=== PATIENT | female | born 1955 | race Caucasian/White ===

== ENCOUNTER 2016-11-07 12:31 | Emergency (ER) | payer MEDICAID ==
[~2016-11-07] VITALS: Ht 157.5 cm; Wt 62.6 kg
[~2016-11-07 12:31] MED LIST: ASPIR-LOW81 MG PO; ASPIRIN325 MG PO; AVPAK PRIMIDONE50 MG PO; B12 INJ.,1000 MCG/M IM; CARBIDOPA/LE1 TABLE2 PO; CLOPIDOGREL75 M2 PO; COMBIVENT RESPI1 SPR IH; GABAPENTIN800 MG PO; HABITROL21 MG/24 H TD; OMEPRAZOLE40 MG PO; PAROXETINE40 MG PO; PHENOBARBITAL16.2 MG PO; PLAQUENIL200 MG PO; SIMVASTATIN20 MG PO; TIZANIDINE HCL 44 MG NG; TOPIRAMATE200 MG PO; TRAMADOL HYDROC50 M1 PO; ZANAFLEX4 MG PO
--- NOTE | 2016-11-07 15:28 | RADIOLOGY REPORT PS360 ---
[id number] VIEWS ORDERING PHYSICIAN : Timoeto Melgar MD PATIENT AGE: 61 years GENDER: Female INDICATION: PAIN fall. Pain left shoulder. TECHNIQUE: AP internal and external rotation view along with Y view left shoulder COMPARISON: No prior relevant studies. Left rib series from today FINDINGS Fracture surgical neck of humerus. Perhaps Mildly impacted medially. With no angulation. There may be associated small flake fragment along the medial aspect of this fracture. The Y view shows subtle 2 mm posterior cortical offset of distal fracture fragment. And there is similar 2millimeter slight cortical offset of lateral cortex at this fracture on the AP external rotation view The humeral head articulates normally with the glenoid. Humeral head itself is intact. Glenoid intact. Scapula intact. Mild AC joint arthropathy and hypertrophy. Visualized superior left ribs appear intact. Left lung apex clear. Mild diffuse demineralization This fracture is also visualized on the left rib series performed today IMPRESSION: --------- 1. Acute Fracture surgical neck Left Humerus. No significant displacement ; only very subtle minor cortical offset noted
--- NOTE | 2016-11-07 15:34 | Emergency Room Report ---
History of Present Illness Time Seen by [id number] Presenting Problem in Triage Pt arrived:Wheelchair Presenting Problem:PT FELL AT HOME OUT OF A CHAIR THAT SHE WAS STANDING IN AND LANDED ON RIGHT SIDE, PT HURTING IN RIGHT BACK AND RIGHT RIB AREA. PT STATES SHE GRABBED SOMETHING WITH HER LEFT ARM AND SHE THINKS SHE DISLOCATED HER LEFT SHOULDER Onset of symptoms date/time:/ or onset unknown for:MEDICAL HX UNKNOWN Treatment Prior to Arrival: PROMOTIONS MANAGER Provided by: Sepsis Risk Assessment: Temp: 98.0 B/P: 167/91 MAP: 100 Pulse: 78 Resp: 18 Recent fever? N Clinical Suspician of Infection? N Mental Status: 1 - Regular (Normal Baseline) Sepsis Risk:Low Sepsis Risk Have you (or family members/close friends) recently traveled outside the [place]? N If Yes, where/when: Have you had exposure to infectious disease within the past month? N TB? Other? Specify: Source patient, RN notes reviewed, family, RN/MD Exam Limitations no limitations Comment This is 61-year-old lady fell out of her chair, approximately 45 minutes prior to arrival, causing her to land on the RIGHT side. Patient here complaining with LEFT shoulder pain, LEFT upper back pain, LEFT ribs pain. Patient believes she has a dislocated LEFT shoulder. The patient has any head injury, any neck pain, any loss of consciousness, nausea, vomiting, seizure activity. ALLERGIES Coded Allergies: Opioids - Morphine Analogues (ITCHING-CAN TAKE WITH BENADRYL PER PT 03/21/16) fentanyl (ANAPHYLAXIS 03/21/16) Home Medications Active Scripts Nicotine (Nicotine Patch) 21 MG TD DAILYP PRN SMOKING CESSATION #30 Ref 3 Prov: 03/24/16 Reported Medications Hydroxychloroquine Sulfate (Plaquenil) 200 MG PO BID Primidone (Avpak Primidone) 100 MG PO BID #120 TAB TIZANIDINE HCL (Zanaflex) 4 MG PO QID CARBIDOPA 25/LEVODOPA 100 (Carbidopa-Levodopa 25-100 Tab) 1 TABLET PO DAILY Simvastatin 20 MG PO DAILY #30 Vitamin B12 (Cyanocobalamin Injection) 1,000 MCG IM Q2WKS #3 PAROXETINE HCL (Paroxetine) 40 MG PO DAILY #30 Topiramate 200 MG PO BID #60 CLOPIDOGREL BISULFATE (Clopidogrel) 75 MG PO DAILY #30 Omeprazole (Omeprazole 40MG) 40 MG PO DAILY #30 Gabapentin (Gabapentin 800MG) 800 MG PO Q8 #90 ALBUTEROL/IPRATROPIUM (Combivent Respimat Inhal Erhard) 1 PUFF IH BID #4 Aspirin (Aspir-Low) 81 MG PO BID History Medical History General CAD? Yes Angina: Yes PR: No Hypertension? Yes Hyperlipidemia? Yes CHF? No DVT? Yes PE? No COPD? No Asthma? Yes Anemia? No GERD? Yes Gastric ulcers? No GI Bleed? No Hernia? No Thyroid Problems? Yes Hypothyroidism? No CVA? Yes Seizures? Yes Diabetes? No Renal Insuffiency? No End Stage Renal Disease? No UTI? Yes Stones? Yes GB Disease: No Nephritic Syndrome? No Asplenia? No Hepatitis? No Sickle Cell Disease? No Arthritis? Yes Migraines? No Cataracts? Yes Glaucoma? No MRSA? No HIV? 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 No Depression? Yes Cancer? Yes Site: RT AXILLA More? Yes Additional hx: 1. 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 2. 2. SYSTEMIC LUPUS dx: 47y.o. 3. 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 Immunization Hx DT/Tetanus Unknown Flu NOT SURE Pneumonia Refuses Surgical Hx Previous Surgery?Y LYMPH NODES RT AXILLA STENTS IN BILAT LEGS FEM-POP GRAFT LEFT BILAT CATARACTS Family History Family Hx Diabetes Yes CAD Yes Hypertension Yes Hyperlipidemia Yes Cancer Yes TB No Social History Smoking Hx Smoker: Former Smoker Tobacco: Yes Type Cigarettes Packs/day < 1 Pack Alcohol Alcohol: No Review of Systems All Other Systems Reviewed and Negative Musculoskeletal joint pain (left shoulder) Physical Exam Vital Signs Vital Signs Date Time Temp Pulse Resp B/P Pulse O2 O2 Flow FiO2 Ox Delivery Rate 11/07 1618 98.0 76 18 173/89 98 11/07 1617 98.0 76 18 173/89 98 11/07 1538 76 18 173/89 98 11/07 1535 18 11/07 1508 78 18 167/91 98 11/07 1420 76 18 157/95 98 11/07 1251 98.0 73 18 155/73 99 General Appearance normal appearance, WD/WN, moderate distress Respiratory Status Yes: trachea midline, chest symmetrical, non tender chest. No: respiratory distress. Lung Sounds bilateral: normal breath sounds, lungs clear. Cardiovascular normal exam, regular rate/rhythm, no peripheral edema, no gallop, no JVD, no murmur, no rub, normal peripheral pulses Gastrointestinal normal bowel sounds, normal exam, non tender, soft, no organomegaly Extremities LEFT shoulder to palpation, mild soft tissue swelling, no obvious deformity, range of motion is restricted due to severe pain. 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 No Comment On examination patient appears medically stable, with mild pain in the LEFT shoulder, after splinting. Patient instructed to follow-up with one of the orthopedic surgeons, per discharge instructions, at her earliest convenience. Results/Orders Orders Procedure Date/time Status STABILIZE JOINT 11/07 1531 Active XRAY/CT/US XRAY/CT/US XRAY LEFT shoulder - surgical neck fracture All other x-rays - negative. Departure Departure Time of Disposition 1531 Disposition DC Home or Self Care(routine) Clinical Impression Primary Impression: Shoulder fracture, left Qualifiers: Encounter type: initial encounter Fracture type: closed Qualified Code: S42.92XA - Fracture of left shoulder girdle, part unspecified, initial encounter for closed fracture Condition STABLE Referrals Esau GARCIA,Fernando GIFFORD MD, [facility] Patient Instructions DI for Shoulder Fracture Additional Instructions Please take your pain medications as directed, maintain your LEFT shoulder immobilized, follow-up with Dr. Cifuentes tomorrow at 2:15pm. Discharge Counseling Counseled pt/family regarding diagnosis, test results, medications/RX, home care, follow up needs Comment Please take your pain medications as directed, maintain your LEFT shoulder immobilized, follow-up with Dr. Cifuentes tomorrow at 2:15pm. Prescriptions Current Visit Scripts HYDROCODONE/ACETAMINOPHEN (Lortab 10-325 MG Tablet) 1 TAB PO QIDP PRN pain #5 TAB ED Critical Care Critical Care No at 1305
--- NOTE | 2016-11-07 15:41 | RADIOLOGY REPORT PS360 ---
HIP RT 2-3V W/PELVIS IF PERFOR ORDERING PHYSICIAN : Timoteo Melgar MD PATIENT AGE: 61 years GENDER: Female INDICATION: PAIN right hip pain. Fall. Pelvic pain. Previous. pinned Left hip fracture TECHNIQUE: AP and frog-leg view right hip along with AP pelvis COMPARISON: Previous AP pelvis 03/20/2016 FINDINGS The right hip appears intact with no fracture evident and no change since March 2016. Femoral head and neck appear satisfactory. Mild demineralization There was interval pinning of the left hip in March 2016. 3Knowles pins secure the subcapital fracture seen previously. The sacrum and SI joints intact. Scattered small phleboliths pelvic basin. IMPRESSION: ======= Right hip intact with no acute findings.- No fracture Old pinning & ORIF left left femoral neck fracture
--- NOTE | 2016-11-07 15:49 | RADIOLOGY REPORT PS360 ---
[id number] VIEWS ORDERING PHYSICIAN : Timoteo Melgar MD PATIENT AGE: 61 years GENDER: Female INDICATION: PAINFall with right rib pain. Left shoulder pain TECHNIQUE: AP right ribs above and below diaphragm. Both Oblique views right ribs COMPARISON: 2 view chest September 2008 FINDINGS Right ribs are intact with no good evidence of fracture no pneumothorax. No pleural effusion. No active disease in the chest. Right and Left lung clear as well. No significant change since 2007 nor portable study from March 2016. There is a fracture the surgical neck left humerus with cortical fragment along medial aspect of fracture. Actually this particular fragment is better seen on this chest film than the left shoulder series Included Visualized left ribs with no acute fracture. There is what appears to be likely minor old healed fracture involving the left sixth rib accounting for slight undulation here. -----IMPRESSION: Right ribs intact no acute fractures. Lungs clear no active disease. Fracture. At the surgical neck left humerus.. ( Fracture Fragment along medial aspect proximal humeral fracture is actually better seen on this chest film than on previous shoulder study)
[2016-11-07] MEDS ORDERED: ULTRAM50 MG PO (15:53)
[2016-11-07] MEDS ORDERED: LORTAB 10/3251 TAB PO (16:08)
[2016-11-07 16:18] VITALS: BP 173/89
--- NOTE | 2016-11-08 08:00 | RADIOLOGY REPORT PS360 ---
[id number] VIEWS ORDERING PHYSICIAN : Timoteo Melgar MD PATIENT AGE: 61 years GENDER: Female INDICATION: PAIN Fall. Pain. TECHNIQUE: 3 views left elbow COMPARISON: None FINDINGS: Lateral view was repeated. No joint effusion evident.. . Elbow joint appears intact. Distal humerus ulna are unremarkable. Radial head unremarkable. However I would note a subtle transverse sclerotic line proximal radius-. This is seen at junction of proximal metaphysis and proximal shaft of the radius.. It may reflect an old healed fracture... Very slight tilt, angulation seen her on the oblique view. A lateral view is most evident towards anterior cortex. Warrants correlation and follow-up. On final review I would tend to favor old but if pain here it could be recent . IMPRESSION: A subtle sclerotic line is seen transversing proximal most radial shaft,- at its junction with proximal metaphysis. . On final review I tend to favor this is more likely an old injury, & old healed fracture with subtle sclerotic residual. However if pain here this may warrant follow-up to exclude a acute or more recent healing injury.
== END 2016-11-07 16:21 | disposition home or self-care (01) ==
LOC: ER 12:31
DX: S42.92XA Fracture of left shoulder girdle, part unspecified, initial encounter for closed fracture (principal); I10 Essential (primary) hypertension; K21.9 Gastro-esophageal reflux disease without esophagitis; Z87.891 Personal history of nicotine dependence; G20 Parkinson's disease; W07.XXXA Fall from chair, initial encounter; Y92.009 Unspecified place in unspecified non-institutional (private) residence as the place of occurrence of the external cause

== ENCOUNTER → 2016-12-02 | Outpatient (CLI) | payer MEDICAID ==
[~2016-12-02] MED LIST changes: +LORTAB 10/3251 TAB PO; +ULTRAM50 MG PO
--- NOTE | 2016-12-02 10:50 | RADIOLOGY REPORT PS360 ---
HUMERUS-LT CLINICAL INDICATION: Follow-up fracture FU FX HUMERUS ORDERING PHYSICIAN: Fernando Cifuentes MD PATIENT AGE: 61 years COMPARISON: 11/07/2016 FINDINGS: Nondisplaced left humeral neck fracture noted not significant change. Mid and distal aspect of the left humerus are unremarkable. IMPRESSION: No change nondisplaced left humeral neck fracture
== END ==
LOC: RAD 09:10
DX: S42.295D Other nondisplaced fracture of upper end of left humerus, subsequent encounter for fracture with routine healing (principal)